=== PATIENT | female | born 1940 | race Caucasian/White ===

== ENCOUNTER → 2017-07-15 | Outpatient (CLI) | payer MEDICARE, BC ==
[~2017-07-15] VITALS: Ht 160 cm; Wt 59.0 kg
[~2017-07-15] MED LIST: ASCO-78 PO; ASCO500T2 PO; BRIM5DRO3 OP; ESTR0.62 PO; FERR159T3 PO; IBRU140C PO; LEVO50TA5 PO; TRAV5DRO OP; procrit INJ; vit b complex PO
[2017-07-15 08:56] VITALS: BP 129/51
[2017-07-15 10:13] LABS: INR 1.3 (0.8-1.1); PROTHROMBIN TIME PATIENT 15.2 SEC (11.7-14.0)
[2017-07-15 10:25] LABS: FOLATE 22.94 ng/ml (3.2-20.0)
[2017-07-15 11:41] LABS: CSF PROTEIN 46.2 mg/dL (15.0-45.0)
[2017-07-15 12:24] LABS: CSF CLARITY CLEAR; CSF COLOR COLORLESS
[2017-07-15 12:30] VITALS: BP 109/43
--- NOTE | 2017-07-15 17:09 | RAD ---
Lumbar puncture Indication: Speech problems for 2 years, cerebellar degeneration, toe numbness. Technique: Fluoroscopy-guided lumbar puncture with 0.3 minutes of fluoroscopy time with one image saved. Informed consent explaining the risks and benefits of the procedure was obtained including bleeding, infection and spinal headache. Patient demonstrated understanding of the risks and benefits and chose to undergo the procedure. Comparison: None Findings: Suitable area over L2-L3 interlaminar space was selected for lumbar puncture. The skin was prepared and draped with the usual sterile procedure. 1% lidocaine was used for local anesthesia. 22-gauge Ta needle was advanced under fluoroscopy guidance. Approximately 6.5 mL of CSF was obtained for analysis. Patient tolerated procedure well and left the fluoroscopy suite in stable condition. Impression: Uncomplicated lumbar puncture with 6.5 mL of CSF. Patient was observed for one and a half hour in the observation and was discharged with appropriate instructions.
[2017-07-18 13:14] LABS: ALBUMIN,CSF 18 mg/dL (11-48); CSF IGG INDEX 0.7 (0.0-0.7); IGG,SERUM 837 mg/dL (700-1600)
== END | disposition home or self-care (01) ==
LOC: RAD 08:18
PROVIDERS: ATTEND Psychiatry & Neurology Neurology with Special Qualifications in Child Neurology
DX: Z04.9 Encounter for examination and observation for unspecified reason (principal); G31.9 Degenerative disease of nervous system, unspecified; G96.8 Other specified disorders of central nervous system; R20.0 Anesthesia of skin
CPT/HCPCS: 36415; 62270; 82607; 82746; 82787; 82945; 83916; 84157; 84443; 85610; 85651; 87071; 87075; 87205; 89051